=== PATIENT | male | born 1955 | race Caucasian/White ===

== ENCOUNTER 2018-02-18 15:55 | Emergency (ER) | payer OTHER ==
[~2018-02-18] VITALS: Ht 177.8 cm; Wt 72.6 kg
[2018-02-18 23:36] VITALS: BP 115/70
== END 2018-02-18 23:37 | disposition home or self-care (01) ==
LOC: ER 15:55
DX: F10.10 Alcohol abuse, uncomplicated (principal); S00.81XA Abrasion of other part of head, initial encounter; X58.XXXA Exposure to other specified factors, initial encounter; Y93.89 Activity, other specified; Y92.89 Other specified places as the place of occurrence of the external cause; Y99.8 Other external cause status

== ENCOUNTER 2018-07-24 08:28 | Inpatient (IN) | payer OTHER ==
[~2018-07-24] VITALS: Ht 188 cm; Wt 94.8 kg
[2018-07-24 08:29] VITALS: BP 182/96
[2018-07-24 11:15] LABS: HEMATOCRIT 53.3 % (42.0-52.0); HEMOGLOBIN 17.8 gm/dL (14.0-18.0); MCH 34.4 pg (26.0-34.0); MCHC 33.4 g/dL (28.0-37.0); MCV 102.8 fL (80.0-100.0); RBC 5.18 mil/uL (4.50-6.00); RDW 15.9 % (10.5-14.5); WBC 8.2 thou/uL (4.0-11.0)
[2018-07-24 11:21] LABS: CALCIUM 9.3 mg/dL (8.5-10.1); CREATININE 0.7 mg/dL (0.7-1.3); POTASSIUM 4.3 mmol/L (3.5-5.1)
[2018-07-24 13:28] LABS: PROTIME 9.6 Seconds (9.3-11.4)
[2018-07-24 13:41] VITALS: BP 152/88
[2018-07-24 14:26] VITALS: BP 161/80
[2018-07-24 15:13] VITALS: BP 179/98
--- NOTE | 2018-07-24 16:34 | NUR ---
Assumed care when arrived from ER. Patient is alert and oriented x4, pleasant. Denies pain, SOB, nausea. Admit with bilateral PEs and left leg DVT. Left leg is edematous, 3+ and red. Heparin gtt infusing from ER at 15 units / kg / hour or 13.3 ml/hr. Redraw aPtt in for 1999 per protocol. Admission history, assessment and education completed. Oriented to room, call light and fall precautions. Verbalizes understanding. Up ad albin in room with steady gait. Educated on telemetry and RF interference. Verbalizes understanding and consents signed. Paged Dr. Burt regarding CAGE score and current smoker. Librium ordered PRN, may need CIWA protocol, if this is not effective. Nicotine patch also ordered. Too early to determine progression towards POC. Will continue to monitor.
[2018-07-24 19:45] VITALS: BP 143/97
[2018-07-24] MEDS ORDERED: IBUPROFEN 800800 M1 PO (20:41)
[2018-07-24] MEDS ORDERED: OMEPRAZOLE40 MG PO (20:42)
[2018-07-24] MEDS ORDERED: LOSARTAN POTAS100 MG PO (20:43)
[2018-07-24] MEDS ORDERED: ZANTAC 150MG T150 M1 PO (20:46)
[2018-07-24] MEDS ORDERED: FLONASE 0.05%50 MCG NASAL (20:47)
[2018-07-24] MEDS ORDERED: SINGULAIR 10 MG10 M1 PO (20:47)
[2018-07-25 00:06] VITALS: BP 144/90
[2018-07-25 04:05] VITALS: BP 160/96
--- NOTE | 2018-07-25 04:55 | NUR ---
PATIENT IS PROGRESSING IN IS CARE PLAN. VITAL SIGNS STABLE WITH PATIENT HAVING NO COMPLAINTS OF PAIN OR NAUSEA. PATIENT IS FULLY ORIENTED AND ABLE TO CALL APPROPRIATELY FOR NEEDS AND PARTICIPATE IN CARE PLAN. HEPARIN GTT PER PROTOCOL WITH APTT THERAPEUTIC WHEN CHECKED. REDRAW SET FOR TOMORROW. BREATHING STABLE ON ROOM AIR EVIDENCED BY SPOT OXYGENATION CHECKS. PATIENT WAS ABLE TO AMBULATE FREELY AROUND THE ROOM INCIDENT FREE AND APPEARS BALANCED WHEN WALKING. CONTINUE PLAN OF CARE.
[2018-07-25 07:31] VITALS: BP 152/99
--- NOTE | 2018-07-25 10:36 | NUR ---
DP faxed face sheet to [facility]
--- NOTE | 2018-07-25 14:14 | NUR ---
INITIAL ASSESSMENT: SADAF reviewed chart and spoke with nursing and attending physician. Pt was admitted from home due to bilateral PEs/left leg DVT. Attending physician to recommend Eliquis at time of discharge. Pt does not have health insurance and has hx of ETOH use. Pt is homeless. SADAF met with pt at bedside. Introduced role of SW. Pt is alert/orientated x 4. Pt reports he has been staying with sister and nephew, and with friends. Pt has been to homeless shelters in the past and states he will be staying with family when discharged. SADAF discussed need for Eliquis and importance of continuing to take it and follow up with a PCP. SW provided pt with Eliquis packet with discount card and [employer] Resource Guid for primary care. shutdown planner to fax face sheet to [employer] for assistance with Medicaid application or financial assistance. Discharge home is anticipated for tomorrow. Pt to have Eliquis filled at [facility] Outpatient pharmacy. SW offered to arrange cab ride home when discharge. Pt states he will be fine with walking to family/friend's home. SADAF is following to assist as needed with discharge planning.
[2018-07-25 16:16] VITALS: BP 147/95
--- NOTE | 2018-07-25 18:44 | NUR ---
ASsumed care of pt at 0700. pt voicing no concerns. aox4. no pain. no complaints. up ad albin. heparin gtt therapeutic. anticipate d/c tomorrow.
[2018-07-25 19:27] VITALS: BP 145/86
[2018-07-26 05:29] VITALS: BP 132/87
[2018-07-26 07:21] VITALS: BP 146/101
--- NOTE | 2018-07-26 07:35 | NUR ---
Pt. stated he slept well during the night. Cont. on heparin gtt. and titrated per protocol. No signs of bleeding. Tolerating room air and denies being short of breath. Up ad albin in room with steady gait. Making progress towards care plan goals.
[2018-07-26] MEDS ORDERED: NICOTINE TRANSD21 M1 TRANSDERM (11:35)
[2018-07-26] MEDS ORDERED: NORVASC10 MG PO (11:35)
[2018-07-26] MEDS ORDERED: ELIQUIS5 M1 PO (11:35)
[2018-07-26 11:46] VITALS: BP 146/101
--- NOTE | 2018-07-26 13:22 | NUR ---
DISCHARGE NOTE: SW reviewed chart and spoke with nursing and attending physician. Pt is medically stable for discharge home today. Heparin gtt discontinued. Pt to be on Eliquis. Script written. Pt have meds filled at [facility] Out pharmacy. Pt does not qualify for Medicaid per [employer]. Pt needing cab ride to where he will be staying. Voucher provided to pt's nurse to call when pt's medications have been picked up. SADAF faxed face sheet and spoke with pharmacy. Case Mgmt to vouch for med ([facility]). Pt will have 30-day Eliquis free and is encouraged to call for additional financial assistance. Pt has info and packet. No additional SW needs identified at this time, but is available to assist should needs arise.
--- NOTE | 2018-07-26 13:36 | NUR ---
ASSUMED PATIENT CARE AT 0700. A/O X4 . DC HEPARIN GTT AT 1300. UP AD NAGA. PROGRESSING TOWARDS POC GOALS. DC TO HOME NOW.
== END 2018-07-26 13:46 | disposition home or self-care (01) | DRG 299 ==
LOC: ER 08:28 → 3W 12:45 → EROBS 12:45 → 3W 14:37 → ENTRNSPT 07-26 13:20 → EDTRNSPTSTS 07-26 13:28 → 3W 07-26 13:46
PROVIDERS: Emergency Medicine; ADMIT Hospitalist
DX: I82.412 Acute embolism and thrombosis of left femoral vein (principal); I26.99 Other pulmonary embolism without acute cor pulmonale; J98.11 Atelectasis; I82.432 Acute embolism and thrombosis of left popliteal vein; I10 Essential (primary) hypertension; F10.20 Alcohol dependence, uncomplicated; F17.210 Nicotine dependence, cigarettes, uncomplicated; Z71.6 Tobacco abuse counseling; Z79.899 Other long term (current) drug therapy
CPT/HCPCS: 10879

== ENCOUNTER 2018-09-21 17:17 | Emergency (ER) | payer OTHER ==
[~2018-09-21] VITALS: Ht 185.4 cm; Wt 90.7 kg
[~2018-09-21 17:17] MED LIST: ELIQUIS5 M1 PO; FLONASE 0.05%50 MCG NASAL; IBUPROFEN 800800 M1 PO; LOSARTAN POTAS100 MG PO; NICOTINE TRANSD21 M1 TRANSDERM; NORVASC10 MG PO; OMEPRAZOLE40 MG PO; SINGULAIR 10 MG10 M1 PO; ZANTAC 150MG T150 M1 PO
[2018-09-21 19:31] VITALS: BP 103/64
== END 2018-09-21 19:32 | disposition home or self-care (01) ==
LOC: ER 17:17
DX: S60.511A Abrasion of right hand, initial encounter (principal); S60.512A Abrasion of left hand, initial encounter; S80.811A Abrasion, right lower leg, initial encounter; S80.812A Abrasion, left lower leg, initial encounter; F10.129 Alcohol abuse with intoxication, unspecified; F17.210 Nicotine dependence, cigarettes, uncomplicated; X58.XXXA Exposure to other specified factors, initial encounter; Y92.89 Other specified places as the place of occurrence of the external cause; Y93.89 Activity, other specified; Y99.8 Other external cause status

== ENCOUNTER 2018-11-11 18:29 | Emergency (ER) | payer OTHER ==
[~2018-11-11] VITALS: Ht 188 cm; Wt 90.7 kg
[2018-11-11 19:23] LABS: BE(vivo) 1.8 mmol/L (-2 to +3); HCO3 26.4 mmol/L (22.0-26.0); PCO2 41.4 mmHg (35.0-45.0); PO2 68.5 mmHg (80.0-100.0); pH 7.423 (7.360-7.450); sO2 94.1 % (92.0-98.0)
[2018-11-11 19:24] LABS: ABSOLUTE NEUTROPHILS 1.5 thou/uL (1.4-8.2); BASOPHILS 1.4 % (0.0-2.0); EOSINOPHILS 9.8 % (0.0-3.0); HEMATOCRIT 43.2 % (42.0-52.0); HEMOGLOBIN 14.4 gm/dL (14.0-18.0); MCH 34.9 pg (26.0-34.0); MCHC 33.3 g/dL (28.0-37.0); MCV 104.8 fL (80.0-100.0); MONOCYTES 8.1 % (1.0-8.0); PLATELET COUNT 217 thou/uL (150-400); POLYS 24.7 % (36.0-66.0); RBC 4.13 mil/uL (4.50-6.00); RDW 15.4 % (10.5-14.5); WBC 5.9 thou/uL (4.0-11.0)
[2018-11-11 19:30] LABS: ANION GAP 10 mmol/L (7-16); BUN 7 mg/dL (7-18); CALCIUM 8.4 mg/dL (8.5-10.1); CHLORIDE 105 mmol/L (98-107); CO2 28 mmol/L (21-32); CREATININE 0.8 mg/dL (0.7-1.3); GLUCOSE 126 mg/dL (74-106); POTASSIUM 3.8 mmol/L (3.5-5.1); SODIUM 143 mmol/L (136-145)
[2018-11-11 19:40] LABS: TROPONIN-I <0.06 ng/mL (<0.06)
[2018-11-12 01:49] VITALS: BP 112/66
--- NOTE | 2018-11-12 14:07 | EKG ---
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[facility] : 1955 Requested By: Nishant Castañeda Order Number: [id number] MD: Bryce Beckwith Measurements Intervals [place] Rate: 86 P: 73 NE: 140 QRS: 73 QRSD: 103 T: 68 QT: 395 QTc: 473 Interpretive Statements Sinus rhythm Atrial premature complex Baseline wander in lead(s) V2 No previous ECG available for comparison Electronically Signed On 11-12-2018 14:07:07 CDT by Bryce Beckwith [email or web address] ��������������������������������������������� <ELECTRONICALLY SIGNED> ���������������������������������������� By: Bryce Beckwith MD ��������������������������������������������� 11/12/18 1407 192 25 Bryce Beckwith MD /LUCERO
== END 2018-11-12 01:50 | disposition home or self-care (01) ==
LOC: ER 18:29
PROVIDERS: Emergency Medicine
DX: F10.129 Alcohol abuse with intoxication, unspecified (principal); F17.210 Nicotine dependence, cigarettes, uncomplicated; Y90.9 Presence of alcohol in blood, level not specified

== ENCOUNTER 2019-03-20 17:12 | Emergency (ER) | payer OTHER ==
[~2019-03-20] VITALS: Ht 185.4 cm; Wt 90.7 kg
[2019-03-20 22:41] VITALS: BP 126/67
== END 2019-03-20 22:45 | disposition home or self-care (01) ==
LOC: ER 17:12
DX: F10.129 Alcohol abuse with intoxication, unspecified (principal); F17.210 Nicotine dependence, cigarettes, uncomplicated

== ENCOUNTER 2019-04-18 14:41 | Emergency (ER) | payer OTHER ==
[~2019-04-18] VITALS: Ht 185.4 cm; Wt 90.7 kg
[2019-04-18 16:44] VITALS: BP 128/72
== END 2019-04-18 16:50 | disposition home or self-care (01) ==
LOC: ER 14:41
DX: S05.12XA Contusion of eyeball and orbital tissues, left eye, initial encounter (principal); F10.129 Alcohol abuse with intoxication, unspecified; F17.210 Nicotine dependence, cigarettes, uncomplicated; W18.30XA Fall on same level, unspecified, initial encounter; Y93.89 Activity, other specified; Y92.89 Other specified places as the place of occurrence of the external cause; Y99.8 Other external cause status; Y90.9 Presence of alcohol in blood, level not specified

== ENCOUNTER 2019-04-21 20:25 | Emergency (ER) | payer OTHER ==
[~2019-04-21] VITALS: Ht 188 cm; Wt 99.8 kg
[2019-04-22 01:10] VITALS: BP 103/63
== END 2019-04-22 01:11 | disposition home or self-care (01) ==
LOC: ER 20:25
DX: F10.129 Alcohol abuse with intoxication, unspecified (principal); F17.210 Nicotine dependence, cigarettes, uncomplicated

== ENCOUNTER 2019-06-14 18:51 | Emergency (ER) | payer OTHER ==
[~2019-06-14] VITALS: Ht 188 cm; Wt 95.3 kg
[2019-06-14 21:05] VITALS: BP 111/58
== END 2019-06-14 21:05 ==
LOC: ER 18:51
DX: F10.129 Alcohol abuse with intoxication, unspecified (principal); R55 Syncope and collapse; R53.83 Other fatigue; F17.210 Nicotine dependence, cigarettes, uncomplicated; Z02.89 Encounter for other administrative examinations; Y90.9 Presence of alcohol in blood, level not specified

== ENCOUNTER 2019-08-18 13:03 | Emergency (ER) | payer OTHER ==
[~2019-08-18] VITALS: Ht 182.9 cm; Wt 91.0 kg
[2019-08-18 17:59] VITALS: BP 110/74
== END 2019-08-18 18:54 | disposition home or self-care (01) ==
LOC: ER 13:03
DX: F10.920 Alcohol use, unspecified with intoxication, uncomplicated (principal); F17.210 Nicotine dependence, cigarettes, uncomplicated

== ENCOUNTER 2019-11-03 17:22 | Inpatient (IN) | payer OTHER ==
[~2019-11-03] VITALS: Ht 188 cm; Wt 92.1 kg
[2019-11-03 17:23] VITALS: BP 118/85
[2019-11-03 18:09] LABS: ABSOLUTE NEUTROPHILS 8.4 thou/uL (1.4-8.2); BASOPHILS 0.3 % (0.0-2.0); EOSINOPHILS 0.6 % (0.0-3.0); HEMATOCRIT 54.4 % (42.0-52.0); HEMOGLOBIN 18.8 gm/dL (14.0-18.0); MCH 36.3 pg (26.0-34.0); MCHC 34.6 g/dL (28.0-37.0); MCV 104.7 fL (80.0-100.0); MONOCYTES 8.6 % (1.0-8.0); PLATELET COUNT 151 thou/uL (150-400); POLYS 78.5 % (36.0-66.0); RBC 5.19 mil/uL (4.50-6.00); RDW 14.2 % (10.5-14.5); WBC 10.7 thou/uL (4.0-11.0)
[2019-11-03 18:18] LABS: CALCIUM 8.8 mg/dL (8.5-10.1); CREATININE 0.9 mg/dL (0.7-1.3); POTASSIUM 3.7 mmol/L (3.5-5.1)
[2019-11-03 18:28] LABS: TOTAL BILIRUBIN 1.5 mg/dL (0.2-1.0); TOTAL PROTEIN 7.5 g/dL (6.4-8.2); TROPONIN-I 0.32 ng/mL (<0.06)
[2019-11-03 19:51] LABS: BE(vivo) 3.6 mmol/L (-2 to +3); HCO3 25.9 mmol/L (22.0-26.0); PCO2 33.3 mmHg (35.0-45.0); PO2 65.3 mmHg (80.0-100.0); pH 7.508 (7.360-7.450); sO2 94.7 % (92.0-98.0)
[2019-11-03 19:59] LABS: INR 1.2; PROTIME 11.9 Seconds (9.3-11.4)
[2019-11-03 20:16] VITALS: BP 118/85
[2019-11-03 20:38] VITALS: BP 118/85
[2019-11-03 20:55] VITALS: BP 112/65
[2019-11-03 21:25] VITALS: BP 126/89
[2019-11-03 23:37] VITALS: BP 131/88
--- NOTE | 2019-11-04 01:03 | NUR ---
PT ADMITTED FROM ER AROUND 2114 PM. ALERT AND ORIENTED X4.VSS 98.9 TEMP. SATS 94% ON 3LNC. LUNGS SOUND DIMINISHED AND CURRENTLY UNLABORED ON 3LNC. SR WITH PACS ON TELEMETRY. ORIENTED PT TO . INSTRUCTED ON FALL PRECAUTIONS. HEPARIN BOLUS GIVEN AND DRIP INITIATED ORDERED. PT DENIES CHEST PAIN, DIZZINESS OR SOA PRESENTLY. NO S/S BLEEDING NOTED PRESENTLY. ALONZO LE VENOUS DOPPLERS DONE. NO SCDS DUE TO ALONZO LE DVTS. WILL CONTINUE TO MONITOR PT FOR CHANGES.
[2019-11-04 04:11] VITALS: BP 124/84
--- NOTE | 2019-11-04 04:29 | NUR ---
PT RESTING QUIETLY. VSS AFEBRILE. NO S/S DISTRESS. NO BLEEDING NOTED. HEPARIN AND NS INFUSIN WITHOUT DIFFICULTY LEFT FA. NO C/O DIZZINESS OR CHEST PAIN.
[2019-11-04 04:43] LABS: HEMATOCRIT 50.2 % (42.0-52.0); HEMOGLOBIN 17.1 gm/dL (14.0-18.0); MCHC 34.1 g/dL (28.0-37.0); MCV 105.4 fL (80.0-100.0); RBC 4.76 mil/uL (4.50-6.00); WBC 8.8 thou/uL (4.0-11.0)
[2019-11-04 04:59] LABS: ANION GAP 8 mmol/L (7-16); BUN 5 mg/dL (7-18); CALCIUM 8.3 mg/dL (8.5-10.1); CHLORIDE 101 mmol/L (98-107); CHOLESTEROL 113 mg/dL (<200); CO2 31 mmol/L (21-32); CREATININE 0.9 mg/dL (0.7-1.3); GLUCOSE 109 mg/dL (74-106); HDL CHOLESTEROL 29 mg/dL (>40); LDL CHOLESTEROL 75 mg/dL (<100); MAGNESIUM 1.9 mg/dL (1.8-2.4); SODIUM 140 mmol/L (136-145); TC:HDL 3.9 Ratio (Not establshd); TRIGLYCERIDE 47 mg/dL (<150); TROPONIN-I 0.22 ng/mL (<0.06); VLDL 9 mg/dL (<40)
[2019-11-04 05:02] LABS: SERUM ASSESSMENT Clear
[2019-11-04 07:14] VITALS: BP 135/94
--- NOTE | 2019-11-04 08:28 | EKG ---
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: AMOS : 1955 Requested By: Arlene Mcgregor Order Number: [id number] MD: Alberto Mustafa Measurements Intervals [place] Rate: 108 P: 80 IN: 127 QRS: 85 QRSD: 98 T: 37 QT: 375 QTc: 503 Interpretive Statements Sinus tachycardia Borderline right axis deviation Borderline repolarization abnormality Prolonged QT interval Compared to ECG 11/11/2018 19:26:34 Prolonged QT interval now present Right ventricular conduction delay is now present Electronically Signed On 11-04-2019 8:28:42 CDT by Alberto Mustafa [email or web address] <ELECTRONICALLY SIGNED> By: Alberto Mustafa MD, FAC 11/04/19 0828 180 180 Alberto Mustafa MD, FAC /EPI
--- NOTE | 2019-11-04 11:01 | NUR ---
INITIAL ASSESSMENT: Received consult. SW reviewed chart and spoke with nursing and attending physician. Pt was admitted due to bilateral PE. Pt is on heparin gtt. Pt placed in Enhanced Isolation to r/o COVID-19. Pt is afebrile and requiring 3L of O2. SW placed call to pt's room. No answer. SW left voice message on pt's cell phone. Pt does not have health insurance. Med Assist to follow up with pt to assist with financial assistance/Medicaid application. Pt was started on Eliquis during last hospital stay last year. Per nursing, pt is homeless. SW is following to assist as needed with discharge planning.
[2019-11-04 11:10] VITALS: BP 124/92
--- NOTE | 2019-11-04 13:19 | NUR ---
ASSUMED PATIENT CARE THIS AM AT APPROXXIMATELY 0700. PATIENT IS AWAKE ALERT ORIENTED. PLEASANT AND COOPERATIVE. MEDS AND ASSESSMENTS CHARTED. ON HEPARIN GTT AT THIS TIME. REDRAW AT 1000 SHOWS WITHIN THERAPEUTIC RANGE. WILL RECHECK LEVEL DAILY, NEXT DRAW SCHEDULD FOR TOMORROW IN AM. DAILY ETOH DRINKER, DENIES ANY S/S OF WITHDRAWL AT THIS TIME. PATIENT O2 SAT STABLE ON 3LNC. NO COMPLAINTS OF SOB OR CP AT REST. SOME DYSPNEA WITH EXERTION NOTED. ENCOURAGED PATIENT TO REMAIN ON BEDREST TOLERATED, PATIENT SEEN BY CONSULTANTS THIS SHIFT. PLAN FOR ECHO TO BE COMPLETED PER CARDIO. PULMONARY SPOKE WITH PATIENT REGARDING POSSIBLE PLAN FOR IVC FILTER. ALL QUESTIONS/ CONCERNS ANSWERED/ ADDRESSED.
--- NOTE | 2019-11-04 14:37 | NUR ---
SPOKE WITH ARNOLD KERN RN. ORDER FOR REPEAT COVID TEST OBTAINED.
[2019-11-04 15:17] VITALS: BP 127/95
[2019-11-04 19:03] VITALS: BP 127/80
--- NOTE | 2019-11-04 19:55 | NUR ---
PROVIDER NOTIFIED OF COVID NEG ALONG WITH [employer] CONSULTANT AND CHARGE NURSE.
--- NOTE | 2019-11-04 20:32 | NUR ---
PT RESTING IN BED WATCHING TV, SMILING [employer] CONTACT,JOKING WITH STAFF. PT VERBALIZED UNDERSTANDING NOT TO GET OOB WITH OUT ASSISTANCE. IVF AND HEAPRIN INTACT. BLE EDEMA. BETO SKIN TONE. LUNGS WITH WHEEZES. SOA WITH EXERTION. O2 PER NC.
[2019-11-05 01:06] LABS: GLYCOHEMOGLOBIN (HGB A1C) 5.3 % (4.8-5.6)
[2019-11-05 02:51] VITALS: BP 144/95
--- NOTE | 2019-11-05 03:41 | NUR ---
PT AWAKENED AT 0300 STATING IT WAS 0430 AND HE WANTED TO ORDER BREAKFAST. PT EDUCATED BREAKFAST CAN BE ORDERED AT 0630.
--- NOTE | 2019-11-05 03:43 | NUR ---
HEPARING PTT LOW DRIP ADJUSTED AND BOLUS GIVEN.
[2019-11-05 07:56] VITALS: BP 123/84
--- NOTE | 2019-11-05 09:54 | NUR ---
SPOKE WITH YOLANDA GARCES THIS AM VIA TELEPHONE. ORDERS RECIEVED TO D/C ISOLATION AFTER SECOND COVID NEGATIVE. DR. SHAHZAD VILLALOBOS WITH MS/TELE STATUS MADE GUSTAVO GR AWARE AT THIS TIME. AWAITING BED/ TRANSFER ORDERS.
[2019-11-05 11:09] VITALS: BP 140/92
--- NOTE | 2019-11-05 11:27 | 2DMMODE ---
[facility] [address] [place] [address] 2 D/M-MODE ECHOCARDIOGRAM Name: TEOFILO GOODEN Room #: 356-P ADM IN M.R.#: [id number] Admission: 11/03/19 Attend Phys: Umair Valencia MD Discharge: Date of : 57 Report #: [id number] THIS REPORT FOR: cc: FAM - No family physician/PCP FAM - No family physician/PCP Reyes Murphy MD ~ APPROVED REPORT Study performed: 11/05/2019 10:18:42 EXAM: Comprehensive 2D, Doppler, and color-flow Echocardiogram Patient Location: Bedside Room #: 356 Status: routine BSA: 2.14 HR: 75 bpm BP: 123/84 mmHg Rhythm: NSR Other Information Study Quality: Adequate/lung artifact Indications Pulmonary Embolism Elevated troponin. Hx: HTN, COPD. 2D Dimensions RVDd: 43.89 mm IVSd: 13.16 (7-11mm) LVOT Diam: 23.21 (18-24mm) LVDd: 39.93 mm PWd: 12.78 (7-11mm) Ascending Ao: 34.34 (22-36mm) LVDs: 24.41 (25-40mm) Aortic Root: 32.01 mm Volumes Left Atrial Volume (Systole) Single Plane 4CH: 25.15 mL Single Plane 2CH: 55.35 mL LA ESV Index: 21.00 mL/m2 Aortic Valve AoV Peak Romeo.: 1.19 m/s AO Peak Gr.: 5.63 mmHg LVOT Max P.27 mmHg LVOT Max V: 1.03 m/s [facility] [address] [address] 2 D/M-MODE ECHOCARDIOGRAM Name: TEOFILO GOODEN Room #: 356-P [facility].#: [id number] Admission: 11/03/19 Attend Phys: Umair Valencia, Discharge: Date of : 57 Report #: [id number] [id number] Vmax: 3.68 cm2 Mitral Valve E/A Ratio: 0.7 MV Decel. Time: 256.16 ms MV E Max Romeo.: 0.50 m/s MV A Romeo.: 0.76 m/s MV PHT: 74.29 ms IVRT: 101.50 ms Pulmonary Valve PV Peak Romeo.: 0.63 m/s PV Peak Gr.: 1.60 mmHg Pulmonary Vein P Vein S: 0.53 m/s P Vein A: 0.28 m/s P Vein D: 0.37 m/s P Vein A Dur.: 115.3 msec P Vein S/D Ratio: 1.43 Tricuspid Valve TR Peak Romeo.: 2.83 m/s RAP Estimate: 15.00 mmHg TR Peak Gr.: 32.14 mmHg PA Pressure: 47.00 mmHg Left Ventricle The left ventricle is normal size. There is normal LV segmental wall motion. Mild basal septal hypertrophy is present. Left ventricular systolic function is normal. LVEF is 55-60%. Mild diastolic dysfunction is present (impaired relaxation pattern). Right Ventricle Right ventricle is at upper limits of normal The right ventricular systolic function is low normal. Atria The left atrium size is normal. Right atrium is mildly dilated. Aortic Valve The aortic valve is normal in structure. No aortic regurgitation is present. There is no aortic valvular stenosis. Mitral Valve The mitral valve is normal in structure. Trace mitral regurgitation. No evidence of mitral valve stenosis. Tricuspid Valve [facility] [address] [address] 2 D/M-MODE ECHOCARDIOGRAM Name: TEOFILO GOODEN Room #: 356-P ADM IN M.R.#: [id number] Admission: 11/03/19 Attend Phys: Umair Valencia, Discharge: Date of : 57 Report #: [id number] The tricuspid valve is normal in structure. Moderate tricuspid regurgitation. Estimated PAP is 45-50mmHg. Pulmonic Valve The pulmonary valve is normal in structure. Trace pulmonic regurgitation. Great Vessels The aortic root is normal in size. The ascending aorta is normal in size. IVC is dilated and collapses <50% with inspiration. Pericardium There is no pericardial effusion. <Conclusion> The left ventricle is normal size. LVEF is 55-60%. Right ventricle is at upper limits of normal The right ventricular systolic function is low normal. Right atrium is mildly dilated. The aortic valve is normal in structure. The mitral valve is normal in structure. Trace mitral regurgitation. The tricuspid valve is normal in structure. Moderate tricuspid regurgitation. Estimated PAP is 45-50mmHg. The pulmonary valve is normal in structure. Trace pulmonic regurgitation. There is no pericardial effusion. <ELECTRONICALLY SIGNED> By: Reyes Murphy MD 11/05/19 1127 1127 1127 Reyes Murphy MD /INF
--- NOTE | 2019-11-05 11:54 | NUR ---
ASSUMED PATIENT CARE THIS AM AT APPROXIMATELY 0700. PATIENT IS AWAKE ALERT ORIENTED IN NO ACUTE DISTRESS. PATIENT PLEASANT, NO S/S OF WITHDRAWL NOTED AT THIS TIME. SECOND COVID RESULTED NEGATIVE LAST NIGHT. ISOLATION DISCONTINUED PER DR. HERNANDEZ AND YOLANDA GARCES THIS AM. PATIENT O2 SAT STABLE ON 2LNC. NO COMPLAINTS OF SOB WHILE RESTING. AWAITING ROOM ASSIGNMENT FOR TRANSFER.
--- NOTE | 2019-11-05 14:31 | NUR ---
SW reviewed chart and spoke with nursing. Pt's repeat COVID test is negative. Pt is afebrile and on 3L of O2. Pt is on heparin gtt. Pt may have IVC filter placed. Pt to transfer off 3W when a bed is available. SW placed call to pt's room. No answer. SW will follow up with pt and assist as needed with discharge planning.
[2019-11-05 15:09] VITALS: BP 133/92
--- NOTE | 2019-11-05 17:59 | NUR ---
PATIENT O2 SAT STABLE ON 2LNC. HEPARIN GTT DISCONTINUED THIS SHIFT AND STARTED ON ELIQUIS PO. FIRST DOSE GIVEN TODAY AND EDUCATED PATIENT ON INDICATION OF MEDICATION, DOSE AND POSSIBLE SIDE EFFECTS OF BLEEDING. SPECIAL PRECAUTIONS ISOLATION DISCONTINUED THIS SHIFT. TOLERATING DIET, NO COMPLAINTS OF SOB. VSS.
[2019-11-05 19:36] VITALS: BP 127/93
--- NOTE | 2019-11-06 03:35 | NUR ---
ASSUMED CARE OF PATIENT AT 1900. PATIENT CONTINUES ON 2L OF OXYGEN VIA NASAL CANNULA. PATIENT DENIES PAIN AND SOA. PATIENT RESTED WELL THROUGH NIGHT AND APPEARS TO BE PROGRESSING TOWARDS HIS GOALS.
[2019-11-06 05:13] VITALS: BP 141/95
[2019-11-06 06:05] LABS: HEMATOCRIT 49.8 % (42.0-52.0); HEMOGLOBIN 16.6 gm/dL (14.0-18.0); MCH 35.8 pg (26.0-34.0); MCHC 33.2 g/dL (28.0-37.0); MCV 107.6 fL (80.0-100.0); RBC 4.63 mil/uL (4.50-6.00); RDW 13.5 % (10.5-14.5); WBC 6.5 thou/uL (4.0-11.0)
[2019-11-06 07:56] VITALS: BP 143/93
--- NOTE | 2019-11-06 12:57 | NUR ---
SADAF reviewed chart and spoke with nursing and attending physician. Pt has had two negative COVID-19 tests. Enhanced Isolation precautions discontinued. Pt started on Eliquis today. Pt remains on 2L of O2. SADAF met with pt at bedside. Introduced role of SW. Pt is alert/orientated x 4. Pt reports he is homeless, but has a place where he can stay temporarily when discharged. Pt reports he is normally independent with ADLs. 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 Pt does not have health insurance. Med Assist to follow up with pt regarding financial assistance/Medicaid application. SADAF placed Health Resource Guide/Safety net clinic list/prescription discount card/ Eliquis cards on pt's chart for discharge. Pt reports that he will have transportation home upon discharge. SADAF is following to assist as needed with discharge planning.
--- NOTE | 2019-11-06 16:18 | NUR ---
ASSUMED CARE OF PT AT 0700. PT AOX4 IN NO ACUTE DISTRESS. DIFFICULTY WITH FOLLOWING DIRECTIONS - PULLING OUT MULTIPLE IV'S AND REMOVING TELEMETRY WIRES. REMOVES DESPITE FREQUENT REMINDERS. IVC FILTER PLACED TODAY IN IR - RIGHT GROIN C/D/I. OK TO KEEP OUT IV ACCESS PER HOSPITALIST. REMAINS ON 2L NC . CALLS OUT APPOROPRIATELY. USING URINAL. SR ON TELEMETRY. WILL CONT TO MONITOR.
[2019-11-06 16:35] VITALS: BP 166/111
[2019-11-06 18:13] VITALS: BP 133/89
[2019-11-06 20:19] VITALS: BP 120/83
[2019-11-07 05:05] VITALS: BP 147/99
--- NOTE | 2019-11-07 06:13 | NUR ---
ASSUMED CARE AT 1900, ASSESSMENT COMPLETED. PT A&Ox4 BUT MAKES IMPULSIVE DECISIONS AND PULLS AT TELE AND O2. SLIGHTLY UNSTEADY ON FEED, SET BED ALARM OFF MULTIPLE TIMES OVERNIGHT WHEN USING URINAL, AND AT ONE POINT WAS FOUND KNEELING ON THE MATTRESS VERY UNSTEADILY WHILE URINATING. RIGHT GROIN SITE IS SOFT, NO HEMATOMA NOTED, AND NO SIGNS OF BLEEDING. PLAN FOR EXERCISE OXIMETRY STUDY TODAY WITH POSSIBLE D/C HOME AFTER. NO OTHER CONCERNS, WILL CONTINUE TO MONITOR.
[2019-11-07 07:20] VITALS: BP 144/96
[2019-11-07 07:55] VITALS: BP 147/90
--- NOTE | 2019-11-07 14:06 | NUR ---
SADAF reviewed chart and spoke with nursing and attending physician. Enhanced Isolation precautions have been discontinued. Pt has had two negative COVID tests. Pt had rest/exercise oximetry study completed earlier today. Pt requires 2L at rest and 4L with activity. Pt does not have health insurance. SADAF discussed with [facility] liaison. Weekend O2 lazaro set up is not an option, as it must be approved through the office. It would be $100/mo for a concentrator, $7/tank plus $5 for a regulator, OR $155/month for a home fill system with a concentrator and two portable tanks. SADAF contacted Lius A with [facility], who states they should be able to get pt set up over the weekend, but he will check with his office. [facility] to be billed. SADAF discussed with Director of Case Mgmt, who approved. Pt to be retested tomorrow to see if he will need home oxygen. Pt may need to stay until off O2. Cardiology provided samples of Eliquis to pt. Health Resource Guide and info placed on pt's chart to provide to pt at time of discharge. SADAF is following to assist as needed with discharge planning.
--- NOTE | 2019-11-07 14:33 | NUR ---
ASSUMED CARE APPROX 0700. PT ALERT AND ORIENTED X4. ASSESSMENT CHARTED AND VSS. PT RT GROIN POST CATH SITE C/D/I. SLIGHT BRUISING BELOW DRESSING. NO SIGNS OF ACTIVE BLEEDING OR HEMATOMA. PT DENIES PAIN AT THIS TIME. PT D/C'D HIS OWN IV TODAY AND STATED THAT HE THOUGHT HE WAS GOING HOME. IV NOT PLACED WE HAVE AN ORDER TO KEEP IV OUT PER DR. PIKE. SR ON TELE MONITOR. PT DENIES PAIN. PT DENIES CHEST PAIN. WILL CONTINUE TO MONITOR.
[2019-11-07 16:21] VITALS: BP 137/92
[2019-11-07 19:30] VITALS: BP 147/92
[2019-11-07 23:58] VITALS: BP 163/99
--- NOTE | 2019-11-08 00:17 | NUR ---
ASSUMED CARE AT 1900, ASSESSMENT COMPLETED. PT DENIES PAIN OR NAUSEA, REPORTS BREATHING WITHOUT ISSUE. NO O2 ON, SAT 92%. BEDSIDE REPORT GIVEN TO ROBERTO STILL ON 4W AT 2330, PT IN STABLE CONDITION.
--- NOTE | 2019-11-08 04:31 | NUR ---
VSS-AFEBRILE. TRANSFERRED FROM 3W, RESTED WELL THROUGH NIGHT. C/O HEADACHE, TYLENOL GIVEN WITH RELIEF NOTED. OOB WITH SBA-STEADY ON FEET. FALL PRECAUTIONS IN PLACE, CALLS APPROPRIATELY FOR ANY NEEDED ASSISTANCE.
[2019-11-08 05:33] LABS: HEMATOCRIT 50.6 % (42.0-52.0); HEMOGLOBIN 17.1 gm/dL (14.0-18.0); MCH 36.2 pg (26.0-34.0); MCHC 33.8 g/dL (28.0-37.0); MCV 106.9 fL (80.0-100.0); RBC 4.73 mil/uL (4.50-6.00); RDW 13.8 % (10.5-14.5); WBC 6.5 thou/uL (4.0-11.0)
[2019-11-08 05:42] LABS: CALCIUM 8.6 mg/dL (8.5-10.1); CREATININE 0.8 mg/dL (0.7-1.3); POTASSIUM 4.2 mmol/L (3.5-5.1)
[2019-11-08] MEDS ORDERED: ELIQUIS5 MG PO (09:27)
[2019-11-08 09:29] VITALS: BP 135/91
[2019-11-08 12:54] VITALS: BP 135/91
--- NOTE | 2019-11-08 15:28 | NUR ---
PT IS AOX4, VSS, NO C/O PAIN. PT UP AD NAGA IN ROOM. PT RECEIVED DISCHARGE INSTRUCTIONS AND VERBALIZED UNDERSTANDING. NO IV ACCESS. HOOP MAKER TOOK PT OUT TO CAR WITH FAMILY TO TRANSPORT HOME.
== END 2019-11-08 15:01 | disposition home or self-care (01) | DRG 166 ==
LOC: ER 17:22 → EROBS 19:48 → 3W 20:55 → 4W 11-07 23:29
PROVIDERS: Hospitalist; Nurse Practitioner Family; Physician Assistant; ADMIT Internal Medicine; ATTEND Internal Medicine
PROC: 06H03DZ Insertion of Intraluminal Device into Inferior Vena Cava, Percutaneous Approach (ICD-10-PCS; principal; 2019-11-06)
DX: I26.99 Other pulmonary embolism without acute cor pulmonale (principal); J96.01 Acute respiratory failure with hypoxia; I21.4 Non-ST elevation (NSTEMI) myocardial infarction; I82.413 Acute embolism and thrombosis of femoral vein, bilateral; I82.433 Acute embolism and thrombosis of popliteal vein, bilateral; J44.9 Chronic obstructive pulmonary disease, unspecified; I27.20 Pulmonary hypertension, unspecified; I10 Essential (primary) hypertension; E87.6 Hypokalemia; F17.210 Nicotine dependence, cigarettes, uncomplicated; F10.20 Alcohol dependence, uncomplicated; Y90.9 Presence of alcohol in blood, level not specified; Z20.828 Contact with and (suspected) exposure to other viral communicable diseases
CPT/HCPCS: 10045; 10879

== ENCOUNTER 2020-05-29 23:27 | Emergency (ER) | payer OTHER ==
[~2020-05-29] VITALS: Ht 188 cm; Wt 99.8 kg
[~2020-05-29 23:27] MED LIST changes: +ELIQUIS5 MG PO
[2020-05-29 23:31] VITALS: BP 144/91
== END 2020-05-30 00:11 | disposition home or self-care (01) ==
LOC: ER 23:27
DX: I87.8 Other specified disorders of veins (principal); I87.2 Venous insufficiency (chronic) (peripheral); R60.0 Localized edema; I10 Essential (primary) hypertension; J44.9 Chronic obstructive pulmonary disease, unspecified; F17.210 Nicotine dependence, cigarettes, uncomplicated

== ENCOUNTER 2020-09-24 10:53 | Inpatient (IN) | payer OTHER ==
[~2020-09-24] VITALS: Ht 185.4 cm; Wt 112.2 kg
[2020-09-24 11:00] VITALS: BP 124/77
[2020-09-24 11:31] LABS: HEMATOCRIT 47.4 % (42.0-52.0); HEMOGLOBIN 16.2 gm/dL (14.0-18.0); MCH 37.9 pg (26.0-34.0); MCHC 34.1 g/dL (28.0-37.0); MCV 111.1 fL (80.0-100.0); PLATELET COUNT 181 thou/uL (150-400); RBC 4.26 mil/uL (4.50-6.00); RDW 14.6 % (10.5-14.5); WBC 23.4 thou/uL (4.0-11.0)
[2020-09-24 11:40] LABS: ANION GAP 11 mmol/L (7-16); BUN 11 mg/dL (7-18); CALCIUM 8.7 mg/dL (8.5-10.1); CHLORIDE 95 mmol/L (98-107); CO2 27 mmol/L (21-32); CREATININE 1.5 mg/dL (0.7-1.3); GLUCOSE 126 mg/dL (74-106); POTASSIUM 3.7 mmol/L (3.5-5.1); SODIUM 133 mmol/L (136-145)
[2020-09-24 11:49] LABS: SGOT 290 U/L (15-37); SGPT 102 U/L (16-63); TOTAL BILIRUBIN 3.1 mg/dL (0.2-1.0); TOTAL PROTEIN 7.2 g/dL (6.4-8.2); TROPONIN-I <0.06 ng/mL (<0.06)
[2020-09-24 12:40] LABS: ABSOLUTE NEUTROPHILS 22.9 thou/uL (1.4-8.2); ANISOCYTOSIS 1+; MACROCYTES 2+; PLATELET ESTIMATE NORMAL
[2020-09-24 15:12] LABS: URINE BILIRUBIN NEGATIVE (Negative); URINE BLOOD 2+ (Negative); URINE CLARITY CLEAR; URINE COLOR YELLOW; URINE GLUCOSE-RANDOM* NEGATIVE (Negative); URINE KETONES TRACE (Negative); URINE LEUKOCYTES-REFLEX NEGATIVE (Negative); URINE PROTEIN (DIPSTICK) TRACE (Negative)
[2020-09-24 15:13] LABS: URINE NITRITE-REFLEX POSITIVE (Negative)
[2020-09-24 15:25] LABS: BACTERIA-REFLEX 1-9 Few /HPF (None Seen); HYALINE CASTS 0-3 Few /LPF (None Seen); SQUAMOUS None Seen /LPF (0-3); URINE RBC 1-2 Rare /HPF (NONE SEEN); URINE WBC-REFLEX None Seen /HPF (0-5)
[2020-09-24 15:26] LABS: CRYSTALS None Seen /LPF (None Seen)
[2020-09-24 16:22] VITALS: BP 128/74
[2020-09-24 16:34] VITALS: BP 136/66
[2020-09-24 16:50] VITALS: BP 125/76
--- NOTE | 2020-09-24 17:29 | NUR ---
PATIENT BROUGHT TO FLOOR AT 1713 BY ER STAFF. NO FLUIDS INFUSING. PT A&OX4 BUT PERIODS OF FORGETFUL/CONFUSION. BELONGINGS PUT IN BACKPACK AND PLACED IN CLOSET. BEER BROUGHT IN BY PATIENT GIVEN TO SECURITY.
[2020-09-25 04:33] LABS: CALCIUM 7.4 mg/dL (8.5-10.1); CREATININE 1.1 mg/dL (0.7-1.3); MAGNESIUM 2.1 mg/dL (1.8-2.4); POTASSIUM 3.2 mmol/L (3.5-5.1)
[2020-09-25 05:03] VITALS: BP 101/61
[2020-09-25 07:52] VITALS: BP 92/56
--- NOTE | 2020-09-25 08:09 | NUR ---
PT WENT INTO AFIB THIS EARLY THIS MORNING, METOPROLOL WAS GIVEN, NO EFFECT NOTED. PT HYPOENTSIVE AFTER METOPROLOL BP 91/61 STILL AFIB WITH RAPID RATE. RAPID RESPONSE CALLED, SEE FLOW SHEET. PT NOW ON CARDIZEM , CURRENTLY AT 15MG/HR, HR 130'S T0 150'S. REPORT GIVEN TO ONCOMING RN.
--- NOTE | 2020-09-25 08:45 | EKG ---
[address] [address] ELECTROCARDIOGRAM REPORT Name: TEOFILO GOODEN Room #: 214-P ADM IN M.R.#: [id number] Admission: 09/24/20 Attend Phys: Sulema Dwyer MD Discharge: Date of : 57 Report #: [id number] [facility] ED Test Date: 2020-09-24 Test Time: 11:53:23 Pat Name: TEOFILO GOODEN Department: Room: 214 Gender: M Transfer Specialist: MARLINE : 1955 Requested By: Sade Chew Order Number: [id number] : Som Benavidez Measurements Intervals [place] Rate: 91 P: 58 NM: 126 QRS: 42 QRSD: 95 T: 61 QT: 459 QTc: 565 Interpretive Statements Sinus rhythm Probable left atrial enlargement Prolonged QT interval Compared to ECG 11/03/2019 18:01:56 Sinus tachycardia no longer present Electronically Signed On 09-25-2020 8:45:27 CDT by Som Benavidez [email or web address] <ELECTRONICALLY SIGNED> By: Som Benavidez MD, [facility] 09/25/20 0845 1153 1153 Som Benavidez MD, FACC /EPI
--- NOTE | 2020-09-25 08:46 | EKG ---
[place] [address] [address] [facility] [place] [address] ELECTROCARDIOGRAM REPORT Name: TEOFILO GOODEN Room #: 214-P ADM IN M.R.#: [id number] Admission: 09/24/20 Attend Phys: Sulema Dwyer MD Discharge: Date of : 57 Report #: [id number] [facility] Test Date: 2020-09-25 Test Time: 05:41:50 Pat Name: TEOFILO GOODEN Department: Room: 214 P Gender: M Director Of Compensation: : 1955 Requested By: Radha Hatfield Order Number: [id number] MD: Som Benavidez Measurements Intervals [place] Rate: 163 P: 151 [place]: 128 QRS: 74 QRSD: 92 T: 55 QT: 302 QTc: 498 Interpretive Statements AFIB Multiform ventricular premature complexes ST depression, probably rate related Compared to ECG 09/24/2020 11:53:23 Ventricular premature complex(es) now present ST (T wave) deviation now present Sinus rhythm no longer present Prolonged QT interval no longer present Electronically Signed On 09-25-2020 8:46:34 CDT by Som Benavidez [email or web address] <ELECTRONICALLY SIGNED> By: Som Benavidez MD, FACC 09/25/20 0846 0541 Som Benavidez MD, [facility] /EPI
[2020-09-25 11:31] VITALS: BP 98/57
[2020-09-25 13:56] LABS: HEMOGLOBIN 14.5 gm/dL (14.0-18.0)
[2020-09-25 14:00] LABS: HEMATOCRIT 43.2 % (42.0-52.0); MCH 38.3 pg (26.0-34.0); MCHC 33.6 g/dL (28.0-37.0); PLATELET COUNT 147 thou/uL (150-400); RBC 3.79 mil/uL (4.50-6.00); RDW 14.8 % (10.5-14.5)
[2020-09-25 16:59] VITALS: BP 114/87
[2020-09-25 18:49] LABS: ABSOLUTE NEUTROPHILS 10.3 thou/uL (1.4-8.2); MACROCYTES 3+
--- NOTE | 2020-09-25 20:48 | NUR ---
RECEIVED THE PATIENT ON BED, CONSCIOUS. ORIENTED BUT FORGETFUL.ON NASAL CANNULA AT 2LPM, SATURATING WELL.PATIENT IS ON AFIB WITH RATE AT 130'S.ON CARDIZEM DRIP AT 15MG/HR.AT AROUND 0800H, PATIENT REVERTED TO SINUS RYTHM, BLOOD PRESSURE IS ALSO LOW NORMAL 92/56, CARDIZEM DRIP DISCONTINUED.SEEN BY DR. ALVAREZ, RELAYED LAB RESULTS.POTASSIUM CORRECTION GIVEN.ALL NEEDS ATTENDED.VITALLY STABLE TILL THE SHIFT ENDS.HANDED OVER TO FARM MARKETER FOR FURTHER CARE.
[2020-09-26 00:38] VITALS: BP 92/50
[2020-09-26 05:56] VITALS: BP 93/52
[2020-09-26 06:18] LABS: HEMATOCRIT 38.6 % (42.0-52.0); HEMOGLOBIN 13.3 gm/dL (14.0-18.0); MCH 38.7 pg (26.0-34.0); MCHC 34.3 g/dL (28.0-37.0); MCV 112.7 fL (80.0-100.0); RBC 3.42 mil/uL (4.50-6.00); RDW 14.5 % (10.5-14.5); WBC 8.4 thou/uL (4.0-11.0)
[2020-09-26 06:40] LABS: CALCIUM 7.6 mg/dL (8.5-10.1); CREATININE 0.9 mg/dL (0.7-1.3)
--- NOTE | 2020-09-26 07:22 | HC ---
[facility] [place] [address] CONSULTATION Name: TEOFILO GOODEN Room #: 214-P ADM IN M.R.#: [id number] Admission: 09/24/20 Attend Phys: Sulema Dwyer MD Discharge: Date of : 57 Report #: [id number] THIS REPORT FOR: cc: DARRIUS - No family physician/PCP FAM - No family physician/PCP Sai Smith MD ~ DATE OF SERVICE: 09/25/2020 REASON FOR CONSULTATION: Cellulitis of the right upper extremity with right hand dorsum abscess, cellulitis of right leg. HISTORY OF PRESENT ILLNESS: The patient is a 65-year-old gentleman with a history of alcohol abuse and tobaccoism who lacks a home. He is admitted for dehydration and possible sepsis. He has been noted to have cellulitis of his right hand and leg. He has been seen by Dr. Mir who drained abscess on the dorsum of his right hand. He is on IV vancomycin. Wound culture has been taken of his right hand. PAST MEDICAL HISTORY: Heavy alcohol use, tobaccoism, history of bilateral pulmonary embolism, history of non-ST elevated myocardial infarction, congestive heart failure, history of deep vein thrombosis hyperbilirubinemia. ALLERGIES: No known drug allergies. MEDICATIONS: The patient is on IV vancomycin. LABORATORY DATA: White blood count 23.4. PHYSICAL EXAMINATION: GENERAL: Shows a large gentleman who is alert and arousable. HEENT: Mucous membranes are moist. NECK: Supple. ABDOMEN: Obese. EXTREMITIES: Examination of the right upper extremity shows some edema of the dorsum of the right hand with an apparent healing laceration. There is some thick purulent fluid draining from central portion of the dorsum of the right hand. There is some fluctuance on the dorsum of the right hand proximal to this healing laceration when pressure is placed on this then pus exudes from small opening over the laceration site. This wound has already been cultured. Examination of lower extremity shows some redness of the right lower extremity with some crusted exudate, but no obvious open wound. IMPRESSION: Admitted for, 1. Dehydration and sepsis. 2. Heavy alcohol use. 3. Cellulitis with abscess of right hand, apparent suspected old laceration. [facility] [address] [place] [address] CONSULTATION Name: TEOFILO GOODEN Room #: 214-P ADM IN M.R.#: [id number] Admission: 09/24/20 Attend Phys: Sulema Dwyer MD Discharge: Date of : 57 Report #: [id number] PLAN: The patient has been seen by Dr. Mir. He is on appropriate antibiotic therapy. Wound culture has been done. We will order topical Bactroban and a Kerlix wrap. Dorsum of the hand may require further surgical drainage. Close observation. Topical Bactroban to the right leg, observe, wound care team will follow. <ELECTRONICALLY SIGNED> By: Sai Smith MD 09/26/20 0722 0554 26 MD geetha Silva
--- NOTE | 2020-09-26 07:32 | 2DMMODE ---
[facility] [place] [address] 2 D/M-MODE ECHOCARDIOGRAM Name: TEOFILO GOODEN Room #: 214-P ADM IN M.R.#: [id number] Admission: 09/24/20 Attend Phys: Sulema Dwyer MD Discharge: Date of : 57 Report #: [id number] THIS REPORT FOR: cc: FAM - No family physician/PCP FAM - No family physician/PCP Som Benavidez MD [facility] ~ APPROVED REPORT Study performed: 09/25/2020 11:05:50 EXAM: Comprehensive 2D, Doppler, and color-flow Echocardiogram Patient Location: In-Patient Room #: 214 BSA: 2.37 HR: 78 bpm BP: 92/56 mmHg Rhythm: NSR Other Information Study Quality: Fair Indications Congestive Heart Failure Sepsis Hypertension/HDD 2D Dimensions IVSd: 8.02 (7-11mm) LVOT Diam: 23.96 (18-24mm) LVDd: 44.33 mm PWd: 9.74 (7-11mm) Ascending Ao: 32.97 (22-36mm) Left Atrium: 35.98 (27-40mm) Aortic Root: 31.54 mm Volumes Left Atrial Volume (Systole) Single Plane 4CH: 22.82 mL Aortic Valve AoV Peak Romeo.: 1.03 m/s AO Peak Gr.: 4.27 mmHg LVOT Max P.25 mmHg LVOT Max V: 1.15 m/s GERARD Vmax: 5.00 cm2 [facility] [address] [place] [address] 2 D/M-MODE ECHOCARDIOGRAM Name: TEOFILO GOODEN Room #: 214-P ADM IN M.R.#: [id number] Admission: 09/24/20 Attend Phys: Sulema Dwyer MD Discharge: Date of : 57 Report #: [id number] Mitral Valve E/A Ratio: 0.8 MV Decel. Time: 227.96 ms MV E Max Romeo.: 0.68 m/s MV A Romeo.: 0.83 m/s MV PHT: 66.11 ms MVA (PHT): 3.07 cm2 Pulmonary Valve PV Peak Romeo.: 0.74 m/s PV Peak Gr.: 2.19 mmHg Tricuspid Valve TR Peak Romeo.: 2.40 m/s RAP Estimate: 7.00 mmHg TR Peak Gr.: 22.95 mmHg RVSP: 30.00 mmHg Left Ventricle The left ventricle is normal size. There is normal LV segmental wall motion. Mild concentric left ventricular hypertrophy. Left ventricular systolic function is normal. The left ventricular ejection fraction is within the normal range. LVEF is 60-65%. Transmitral Doppler flow pattern suggests impaired LV relaxation. Right Ventricle The right ventricle is normal size. The right ventricular systolic function is normal. Atria The left atrium size is normal. The right atrium size is normal. Aortic Valve The aortic valve is normal in structure. No aortic regurgitation is present. There is no aortic valvular stenosis. Mitral Valve The mitral valve is normal in structure. There is no mitral valve regurgitation noted. No evidence of mitral valve stenosis. Tricuspid Valve The tricuspid valve is normal in structure. Mild tricuspid regurgitation. PAP 30 mmHg Pulmonic Valve The pulmonary valve is normal in structure. There is no pulmonic valvular regurgitation. [facility] [place] [address] [place] [address] 2 D/M-MODE ECHOCARDIOGRAM Name: TEOFILO GOODEN Room #: 214-P ADM IN M.R.#: [id number] Admission: 09/24/20 Attend Phys: uSlema Dwyer MD Discharge: Date of : 57 Report #: [id number] Great Vessels The aortic root is normal in size. IVC is normal in size and collapses >50% with inspiration. Pericardium There is no pericardial effusion. There is no pleural effusion. <Conclusion> Normal left ventricular size with mild concentric hypertrophy Ejection fraction 60% Normal right ventricular size/function Normal atrial size Color-flow Doppler study was performed of the aortic/mitral/tricuspid/pulmonary valve Normal aortic/mitral valve structure and function Mild tricuspid valve insufficiency Pulmonary systolic pressure estimated 30 mmHg Normal aortic root size No pericardial effusion <ELECTRONICALLY SIGNED> By: Som Benavidez MD, [facility] 09/26/20 0732 0732 [id number] Som Benavidez MD, FACC /INF
[2020-09-26 08:04] VITALS: BP 108/45
[2020-09-26 17:04] VITALS: BP 130/80
[2020-09-26 21:46] VITALS: BP 146/93
[2020-09-27 04:45] VITALS: BP 128/76
[2020-09-27 05:20] LABS: HEMATOCRIT 41.1 % (42.0-52.0); HEMOGLOBIN 14.1 gm/dL (14.0-18.0); MCH 38.5 pg (26.0-34.0); MCHC 34.3 g/dL (28.0-37.0); MCV 112.3 fL (80.0-100.0); RBC 3.66 mil/uL (4.50-6.00); RDW 14.6 % (10.5-14.5)
[2020-09-27 08:08] VITALS: BP 150/83
--- NOTE | 2020-09-27 09:44 | NUR ---
RD consulted. Pt admit due to right hand abscess/cellulitis. Hx NSTEMI, copd, etoh, afib. Eating 100% of all 3 meals from initial admit. Past DN2K wt trends show usual wt 210 lb. Current wts much higher 240-251 lb. Does have bilateral feet 2+ and right leg 2+ edema. On heart healthy diet. Presents low nutrition risk
[2020-09-27 09:46] LABS: CALCIUM 8.1 mg/dL (8.5-10.1); CREATININE 0.8 mg/dL (0.7-1.3); POTASSIUM 3.3 mmol/L (3.5-5.1); TOTAL BILIRUBIN 0.9 mg/dL (0.2-1.0); TOTAL PROTEIN 5.7 g/dL (6.4-8.2)
[2020-09-27 15:38] VITALS: BP 115/64
[2020-09-28 04:35] LABS: ABSOLUTE NEUTROPHILS 3.2 thou/uL (1.4-8.2); BASOPHILS 1.1 % (0.0-2.0); HEMATOCRIT 41.4 % (42.0-52.0); HEMOGLOBIN 14.3 gm/dL (14.0-18.0); LYMPHOCYTES 24.9 % (24.0-44.0); MCH 38.5 pg (26.0-34.0); MCHC 34.6 g/dL (28.0-37.0); MCV 111.4 fL (80.0-100.0); MONOCYTES 11.1 % (1.0-8.0); PLATELET COUNT 205 thou/uL (150-400); POLYS 57.9 % (36.0-66.0); RBC 3.72 mil/uL (4.50-6.00); RDW 14.7 % (10.5-14.5); WBC 5.4 thou/uL (4.0-11.0)
[2020-09-28 04:45] VITALS: BP 139/77
--- NOTE | 2020-09-28 07:39 | NUR ---
patient care was recieved at shift change. patient was assessed and meds were passed. patient showed a nice NSR in the 70's this shift. patient hand was was and keren applied. patiemt was able to sleep approx seven hours. patient is a/o he is able to gt his needs meet. he dos have a kenyon vocabulary, rounds were done. the bed alarm was on. the bed is in a low and locked position.
[2020-09-28 07:40] VITALS: BP 141/88
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
[2020-09-28 11:40] VITALS: BP 134/89
--- NOTE | 2020-09-28 12:25 | NUR ---
pt up in room steady gait, refused meds and ointment, call light with in reach, no distress. Pt educated on the meds he refused, pt cont to refused.
[2020-09-28 16:00] VITALS: BP 132/67
--- NOTE | 2020-09-28 18:49 | NUR ---
pt up in bed, resting , no distress, agreed to take meds at this time.
[2020-09-28 19:33] VITALS: BP 141/91
[2020-09-28 23:23] VITALS: BP 133/76
[2020-09-29 04:13] VITALS: BP 146/88
[2020-09-29 07:47] VITALS: BP 139/91
[2020-09-29] MEDS ORDERED: VITAMIN B-1100 M2 PO (08:36)
[2020-09-29] MEDS ORDERED: VEETIDS 250MG250 M1 PO (08:39)
[2020-09-29] MEDS ORDERED: CARDIZEM CD120 MG PO (08:39)
[2020-09-29] MEDS ORDERED: ELIQUIS5 M1 PO (08:39)
[2020-09-29 13:13] VITALS: BP 118/78
[2020-09-29 14:15] VITALS: BP 118/78
--- NOTE | 2020-09-29 14:19 | NUR ---
DISCHARGE NOTE: Pt is ready for discharge today. Meds vouched at [facility]. Total $459.00. SADAF notified Director of Case Mgmt. SADAF placed call to [facility] for usp placement. SADAF received call back from Breana, who provided medical clearance for pt to come to [facility]. Pt must be at [facility] by 1800. SADAF faxed requested info to Breana. Pt will be provided with cab voucher. Pt provided with info regarding safety net clinics and housing assistance. No additional SW need identified at this time, but is available to assist should needs arise.
[2020-09-29 14:55] VITALS: BP 118/78
--- NOTE | 2020-09-29 15:37 | NUR ---
Patient homeless. Vouched medications in amount of $496.00 approval from [facility] More[facility]. Called [facility] custodial unit multiple times leaving message. Spoke with [facility] who can accept patient. He needs to arrive prior to 6 pm. Spoke with patient who refuses. Reports he will dc outside of hospital. He will not go to custodial. Patient refused resources. Encouraged patient to go mission where they have casemgt. Reports he needs to be established with medical care as he is on eloquis. Patient refuses. Updated RN.
[2020-09-29 15:40] VITALS: BP 118/78
== END 2020-09-29 16:43 | disposition home or self-care (01) | DRG 871 ==
LOC: ER 10:53 → 2N 16:54 → EROBS 16:54 → 2N 16:55
PROVIDERS: Emergency Medicine; ADMIT Internal Medicine; ATTEND Internal Medicine
DX: A41.9 Sepsis, unspecified organism (principal); E43 Unspecified severe protein-calorie malnutrition; N39.0 Urinary tract infection, site not specified; L02.511 Cutaneous abscess of right hand; E87.1 Hypo-osmolality and hyponatremia; L03.115 Cellulitis of right lower limb; R65.20 Severe sepsis without septic shock; J44.9 Chronic obstructive pulmonary disease, unspecified; I73.9 Peripheral vascular disease, unspecified; E80.6 Other disorders of bilirubin metabolism; R74.01 Elevation of levels of liver transaminase levels; E83.42 Hypomagnesemia; N18.9 Chronic kidney disease, unspecified; F10.10 Alcohol abuse, uncomplicated; E86.0 Dehydration; I48.0 Paroxysmal atrial fibrillation; R41.0 Disorientation, unspecified; L55.9 Sunburn, unspecified; I95.9 Hypotension, unspecified; Z20.822 Contact with and (suspected) exposure to COVID-19; S61.411A Laceration without foreign body of right hand, initial encounter; I07.1 Rheumatic tricuspid insufficiency; I27.20 Pulmonary hypertension, unspecified; I12.9 Hypertensive chronic kidney disease with stage 1 through stage 4 chronic kidney disease, or unspecified chronic kidney disease; E87.6 Hypokalemia; Z86.711 Personal history of pulmonary embolism; I25.2 Old myocardial infarction; Z86.718 Personal history of other venous thrombosis and embolism; Z82.49 Family history of ischemic heart disease and other diseases of the circulatory system; Z87.891 Personal history of nicotine dependence; Z59.0 Homelessness; X58.XXXA Exposure to other specified factors, initial encounter; Y93.89 Activity, other specified; Y92.89 Other specified places as the place of occurrence of the external cause; Y99.8 Other external cause status; Z91.14 Patient's other noncompliance with medication regimen
CPT/HCPCS: 10081

== ENCOUNTER 2020-10-22 20:20 | Inpatient (IN) | payer OTHER ==
[~2020-10-22] VITALS: Ht 188 cm; Wt 110.0 kg
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
[~2020-10-22 20:20] MED LIST changes: +CARDIZEM CD120 MG PO; +VEETIDS 250MG250 M1 PO; +VITAMIN B-1100 M2 PO
[2020-10-22 20:22] VITALS: BP 149/94
[2020-10-22 21:56] LABS: HEMATOCRIT 42.7 % (42.0-52.0); HEMOGLOBIN 14.8 gm/dL (14.0-18.0); MCH 38.7 pg (26.0-34.0); MCHC 34.6 g/dL (28.0-37.0); MCV 111.7 fL (80.0-100.0); RBC 3.82 mil/uL (4.50-6.00); RDW 15.5 % (10.5-14.5); WBC 6.2 thou/uL (4.0-11.0)
[2020-10-22 22:14] LABS: APTT 24.7 Seconds (24.5-32.8); D-DIMER 1.23 ug/mLFEU (0.19-0.50); INR 1.11
[2020-10-22 22:25] LABS: ALBUMIN 2.5 g/dL (3.4-5.0); CALCIUM 7.7 mg/dL (8.5-10.1); CREATININE 1.1 mg/dL (0.7-1.3); TOTAL BILIRUBIN 0.9 mg/dL (0.2-1.0); TOTAL PROTEIN 6.7 g/dL (6.4-8.2)
[2020-10-22 22:41] LABS: POTASSIUM 2.8 mmol/L (3.5-5.1)
[2020-10-23] VITALS (7 sets, daily range): BP systolic 124–133; BP diastolic 64–82
[2020-10-23 04:44] LABS: HEMATOCRIT 42.2 % (42.0-52.0); HEMOGLOBIN 14.4 gm/dL (14.0-18.0); MCH 38.7 pg (26.0-34.0); MCV 113.8 fL (80.0-100.0); RBC 3.7 mil/uL (4.50-6.00); RDW 15.8 % (10.5-14.5); WBC 6.6 thou/uL (4.0-11.0)
[2020-10-23 05:11] LABS: CALCIUM 7.9 mg/dL (8.5-10.1); CREATININE 1.1 mg/dL (0.7-1.3); POTASSIUM 3.4 mmol/L (3.5-5.1)
--- NOTE | 2020-10-23 07:18 | NUR ---
PT CAME UP TO THE UNIT AT AROUND 0637 HRS. PT ORIENTED TO ROOM AND STAFF. CALL LIGHT WITHIN REACH. REPORT GIVEN TO OMAYRA MEJIA.
[2020-10-24 04:14] VITALS: BP 126/73
[2020-10-24 05:13] LABS: HEMATOCRIT 42.2 % (42.0-52.0); HEMOGLOBIN 14.1 gm/dL (14.0-18.0); MCHC 33.4 g/dL (28.0-37.0); MCV 113.9 fL (80.0-100.0); RBC 3.7 mil/uL (4.50-6.00); RDW 15.7 % (10.5-14.5); WBC 5.9 thou/uL (4.0-11.0)
[2020-10-24 05:32] LABS: CALCIUM 8.1 mg/dL (8.5-10.1); POTASSIUM 3.9 mmol/L (3.5-5.1)
--- NOTE | 2020-10-24 06:24 | NUR ---
Pt. slept well during the night. Tolerating room air well with O2 sat in the low to mid 90's. SR per tele . Pt. up ad albin except he reported that at times he has problems with balance. Encouraged to get up slowly and to call staff if needs assistance and he verbalized understanding.
[2020-10-24 07:30] VITALS: BP 109/66
--- NOTE | 2020-10-24 12:37 | EKG ---
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 : 1955 Requested By: Caroline Morel Order Number: [id number] MD: Alberto Mustafa Measurements Intervals [place] Rate: 148 P: [place]: QRS: 70 QRSD: 92 T: 37 QT: 332 QTc: 522 Interpretive Statements Atrial fibrillation with rapid V-rate Nonspecific ST and T wave abnormality Compared to ECG 09/25/2020 05:41:50 No significant changes Electronically Signed On 10-24-2020 12:37:31 CDT by Alberto Mustafa [email or web address] <ELECTRONICALLY SIGNED> By: Alberto Mustafa MD, [facility] 10/24/20 1237 2106 05 Alberto Mustafa MD, FACC /EPI
--- NOTE | 2020-10-24 12:37 | EKG ---
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 : 1955 Requested By: Surinder Sage Order Number: [id number] MD: Alberto Mustafa Measurements Intervals [place] Rate: 148 P: NE: QRS: 70 QRSD: 92 T: 37 QT: 332 QTc: 522 Interpretive Statements Atrial fibrillation with rapid V-rate Nonspecific ST and T wave abnormality Compared to ECG 09/25/2020 05:41:50 No significant changes Electronically Signed On 10-24-2020 12:37:45 CDT by Alberto Mustafa [email or web address] <ELECTRONICALLY SIGNED> By: Alberto Mustafa MD, [facility] 10/24/20 1237 05 Alberto Mustafa MD, FACC /EPI
[2020-10-24 16:00] VITALS: BP 131/76
[2020-10-24 20:15] VITALS: BP 109/60
[2020-10-25 00:24] LABS: HEMATOCRIT 43.7 % (42.0-52.0)
[2020-10-25 00:26] LABS: HEMOGLOBIN 14.7 gm/dL (14.0-18.0); MCH 38.4 pg (26.0-34.0); MCHC 33.7 g/dL (28.0-37.0); MCV 113.9 fL (80.0-100.0); RBC 3.84 mil/uL (4.50-6.00); RDW 15.8 % (10.5-14.5); WBC 5.9 thou/uL (4.0-11.0)
[2020-10-25 04:45] VITALS: BP 141/80
--- NOTE | 2020-10-25 07:21 | NUR ---
UPON SHIFT ASSESSMENT, PT AOX4, NOTABLY HARD OF HEARING. PT DENIES PAIN AND SOB WHILE ON ROOM AIR. PT TOLERATING PO INTAKE OF FLUIDS AND HEART HEALTHY DIET WITHOUT ISSUE. PT WITHOUT NAUSEA OR EMESIS. PT AMBULATING INDEPENDENTLY IN ROOM AND TO BATHROOM. SENSATION INTACT. PERIPHERAL PULSES PALPABLE IN BUE, FAINT IN BLE. +3 PITTING EDEMA NOTED IN BLE. CAPILLARY REFILL LESS THAN 3SEC. PT RESTING IN BED THROUGHOUT SHIFT. FREQUENT REPOSITIONING ENCOURAGED WHILE IN BED, PT NOTED TO SHIFT INDEPENDENTLY. UPON 2ND VITAL ASSESSMENT, PT NOTED TO BE AT 88% WHILE ON ROOM AIR. 2L O2 VIA NC APPLIED, O2 SATURATION IMPROVED TO 90%, NO FURTHER DESATURATION NOTED. PT ENCOURAGED TO NOTIFY STAFF FOR ALL NEEDS, CALL LIGHT WITHIN REACH, BED LOCKED IN LOWEST POSITION, FREQUENT MONITORING WILL CONTINUE.
[2020-10-25] MEDS ORDERED: CARDIZEM CD120 MG PO ×3 (07:42→12:07)
[2020-10-25] MEDS ORDERED: ELIQUIS5 MG PO ×3 (07:42→12:07)
[2020-10-25 07:55] VITALS: BP 144/96
[2020-10-25 10:39] VITALS: BP 144/96
[2020-10-25 12:07] VITALS: BP 144/96
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
--- NOTE | 2020-10-25 12:30 | NUR ---
Assumed care of pt this AM. Pt is A&O x 4, on RA. Denies any chest pain. Sinus arrhythmia on the monitor. Plans to d/c today. Will continue to assess pt needs throughout the day.
--- NOTE | 2020-10-25 12:55 | NUR ---
DISCHARGE NOTE: discharge educated provided to pt. All paperwork signed. IV & tele monitor discontinued. Presciption given to pt. Stressed for pt to follow up w/ [facility] & activate Eliquis card for lower co-pays. Pt wheeled to ED enterance.
== END 2020-10-25 14:15 | disposition home or self-care (01) | DRG 308 ==
LOC: ER 20:20 → 2N 23:37 → EROBS 23:37 → 2N 10-23 06:34
PROVIDERS: Nurse Practitioner Family; ADMIT Hospitalist; ATTEND Hospitalist
DX: I48.91 Unspecified atrial fibrillation (principal); J96.01 Acute respiratory failure with hypoxia; I82.403 Acute embolism and thrombosis of unspecified deep veins of lower extremity, bilateral; Z79.01 Long term (current) use of anticoagulants; I10 Essential (primary) hypertension; E87.6 Hypokalemia; Z91.14 Patient's other noncompliance with medication regimen; Z59.0 Homelessness; Z86.711 Personal history of pulmonary embolism; J44.9 Chronic obstructive pulmonary disease, unspecified; F10.20 Alcohol dependence, uncomplicated; F17.210 Nicotine dependence, cigarettes, uncomplicated; Z71.6 Tobacco abuse counseling; Z20.822 Contact with and (suspected) exposure to COVID-19
CPT/HCPCS: 10081

== ENCOUNTER 2020-12-14 16:59 | Inpatient (IN) | payer OTHER ==
[~2020-12-14] VITALS: Ht 188 cm; Wt 103.4 kg
[2020-12-14 17:13] VITALS: BP 116/76
[2020-12-14 18:31] LABS: HEMATOCRIT 45.7 % (42.0-52.0); HEMOGLOBIN 15.7 gm/dL (14.0-18.0); MCH 41.1 pg (26.0-34.0); MCHC 34.4 g/dL (28.0-37.0); MCV 119.7 fL (80.0-100.0); PLATELET COUNT 209 thou/uL (150-400); RBC 3.82 mil/uL (4.50-6.00); RDW 18.2 % (10.5-14.5); WBC 4.8 thou/uL (4.0-11.0)
[2020-12-14 18:47] LABS: ALBUMIN 2.6 g/dL (3.4-5.0); CALCIUM 8.2 mg/dL (8.5-10.1); TOTAL BILIRUBIN 0.9 mg/dL (0.2-1.0); TOTAL PROTEIN 6.7 g/dL (6.4-8.2)
[2020-12-14 18:51] LABS: POTASSIUM 2.5 mmol/L (3.5-5.1)
--- NOTE | 2020-12-14 19:12 | NUR ---
REPORT GIVEN TO ROBERTO MONROY AT THIS TIME
[2020-12-14 19:19] LABS: ABSOLUTE NEUTROPHILS 2.3 thou/uL (1.4-8.2); ANISOCYTOSIS 1+; MACROCYTES 1+
[2020-12-14 22:47] VITALS: BP 132/87
[2020-12-14 22:59] VITALS: BP 114/75
[2020-12-14 23:31] VITALS: BP 142/94
--- NOTE | 2020-12-15 04:49 | NUR ---
ROMEL PT GOT UP TO USE RESTROOM AND PEED AND POOPED ON THE FLOOR. BED ALARM PLACED ON. PT THIS AM GOT UP PULLED OUT HIS IV BECAUSE IT WAS BOTHERING HIM AND TOOK OFF HIS 5L OF 02 TO WALK TO THE RESTROOM. BED ALARM WAS SOUNDING. PT DID NOT CALL FOR HELP. PT IS AWARE OF HIS ACTIONS AND CHOOSING NOT TO FOLLOW EDUCATION.
--- NOTE | 2020-12-15 05:34 | NUR ---
IV RESTARTED IVF WITH POTASSIUM AND POTASSIUM RESTARTED AT SLOW RATE. PT REPORTED POTASSIUM BURNING WHEN HE AWAKENED, SO HE PULLED OUT HIS IV. NS IVF WILL START AFTER ED BAG. BED ALARM ON.
--- NOTE | 2020-12-15 07:19 | EKG ---
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: : 1955 Requested By: Brock Rey Order Number: [id number] MD: Som Benavidez Measurements Intervals [place] Rate: 66 P: 49 HI: 146 QRS: 67 QRSD: 138 T: 88 QT: 575 QTc: 603 Interpretive Statements Sinus rhythm Left atrial enlargement Nonspecific intraventricular conduction delay Compared to ECG 10/22/2020 21:06:32 Atrial abnormality now present Intraventricular conduction delay now present T-wave abnormality now present Possible ischemia now present Atrial fibrillation no longer present ST (T wave) deviation no longer present Electronically Signed On 12-15-2020 7:19:31 CDT by Som Benavidez [email or web address] <ELECTRONICALLY SIGNED> By: Som Benavidez MD, FACC 12/15/20 [phone] Som Benavidez MD, [facility] /EPI
[2020-12-15 07:26] LABS: HEMATOCRIT 45.2 % (42.0-52.0); HEMOGLOBIN 15.2 gm/dL (14.0-18.0); MCH 40.6 pg (26.0-34.0); MCHC 33.6 g/dL (28.0-37.0); RBC 3.74 mil/uL (4.50-6.00); RDW 18.5 % (10.5-14.5); WBC 2.4 thou/uL (4.0-11.0)
[2020-12-15 07:29] LABS: INR 1.12; PROTIME 12.1 Seconds (10.5-12.1)
[2020-12-15 07:37] VITALS: BP 140/83
[2020-12-15 07:40] LABS: ANION GAP < 0 mmol/L (7-16); BUN 11 mg/dL (7-18); CALCIUM 8.1 mg/dL (8.5-10.1); CHLORIDE 103 mmol/L (98-107); CO2 41 mmol/L (21-32); CREATININE 0.8 mg/dL (0.7-1.3); GLUCOSE 145 mg/dL (74-106); POTASSIUM 3.9 mmol/L (3.5-5.1); SGOT 77 U/L (15-37); SGPT 67 U/L (16-63); SODIUM 137 mmol/L (136-145); TOTAL BILIRUBIN 0.5 mg/dL (0.2-1.0); TOTAL PROTEIN 5.9 g/dL (6.4-8.2)
[2020-12-15 07:49] LABS: ALBUMIN < 0.6 g/dL (3.4-5.0)
[2020-12-15 11:25] VITALS: BP 120/77
--- NOTE | 2020-12-15 15:10 | NUR ---
INITIAL ASSESSMENT: SW reviewed chart and spoke with nursing and attending physician. Pt was admitted due to shortness of breath/chronic PE. Pt tested positive for COVID in the ER. Pt placed in Enhanced Isolation. Per chart, pt has received a COVID vaccination. Pt is afebrile and on 5L of O2. Pt is on IV steroids. Remdesivir started. Pt with hx HTN/CHF/PVD. Pt is on Eliquis. Pt does not currently have health insurance. [facility] to screen pt for [place]-Medicaid. SADAF placed call to pt's room. No answer. Pt known to SW from prior hospitalizations. Pt has been homeless in the past. SW has vouched for pt's scripts due to lack of insurance. SW to follow up with pt at a later time to complete assessment and discuss discharge plan.
[2020-12-15 15:44] VITALS: BP 145/92
[2020-12-15 19:27] VITALS: BP 133/89
--- NOTE | 2020-12-16 03:35 | NUR ---
ASSESSED AT START OF SHIFT 0. PT RESTING IN BED WANTS TO BE LEFT ALONE. IV INTACT AND REMDESIVIR TREATMENT STARTED. EVEING MEDS GIVEN AND PT RAVI IT WELL. PT ON 2L OF O2 AND LIKE TO TAKE IT OFF, THIS NURSE. ENCOURAGED PT TO KEEP O2 ON AND EDUCATION PROVIDED. PT TOOK OF TELE MONITORX2 AND SET ON THE RABLE. NURSE EDUCATED PT TO LEAVE IT ON. CALL LIGHT AT REACH. DENIES N/V. WILL CONT TO MONITOR.
[2020-12-16 06:37] LABS: ABSOLUTE NEUTROPHILS 5.5 thou/uL (1.4-8.2); BASOPHILS 0.1 % (0.0-2.0); HEMOGLOBIN 15.2 gm/dL (14.0-18.0); MCH 41.5 pg (26.0-34.0); MCHC 34.5 g/dL (28.0-37.0); MCV 120.3 fL (80.0-100.0); MONOCYTES 6.8 % (1.0-8.0); PLATELET COUNT 207 thou/uL (150-400); POLYS 77.1 % (36.0-66.0); RBC 3.65 mil/uL (4.50-6.00); RDW 18.1 % (10.5-14.5); WBC 7.1 thou/uL (4.0-11.0)
[2020-12-16 06:50] LABS: ALBUMIN 2.2 g/dL (3.4-5.0); CALCIUM 8.3 mg/dL (8.5-10.1); CREATININE 0.9 mg/dL (0.7-1.3); DIRECT BILIRUBIN 0.1 mg/dL (<0.1-0.2); TOTAL BILIRUBIN 0.6 mg/dL (0.2-1.0); TOTAL PROTEIN 5.7 g/dL (6.4-8.2)
[2020-12-16 06:51] LABS: POTASSIUM 5.3 mmol/L (3.5-5.1)
[2020-12-16 07:33] VITALS: BP 124/84
[2020-12-16 11:27] VITALS: BP 114/73
--- NOTE | 2020-12-16 12:26 | HC ---
[facility] [place] [address] CONSULTATION Name: TEOFILO GOODEN Room #: 349-I ADM IN .R.#: [id number] Admission: 12/14/20 Attend Phys: Levi Herron MD Discharge: Date of : 57 Report #: [id number] THIS REPORT FOR: cc: FAM - No family physician/PCP FAM - No family physician/PCP Damion Almanza MD ~ DATE OF SERVICE: 12/15/2020 INFECTIOUS DISEASE CONSULTATION ATTENDING PHYSICIAN: Dr. Herron. REASON FOR EVALUATION: COVID-19 infection, complicated by pneumonitis, respiratory failure. HISTORY OF PRESENT SUBJECTIVE: Chart reviewed. The patient was examined. This is a 65-year-old gentleman with a known history of DVT, PE, who has been ill for a number of days. He is unable to give details, but became progressively dyspneic. Due to history of PE, he presented to the emergency room. Initial evaluation suggested pneumonitis on chest x-ray. Coronavirus testing was positive. Lactic acid in the normal range. D-dimer was elevated at 0.83. Procalcitonin less than 0.05. 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 Initial white count of 2.4, hemoglobin 15.2, MCV interestingly was 121. He has not had fevers documented since admission. He was empirically placed on antibiotics with azithromycin, ceftriaxone, and remdesivir as well as dexamethasone and vitamins. ALLERGIES: None known. CURRENT MEDICATIONS: Include famotidine, thiamine, diltiazem CD, apixaban, dexamethasone, zinc, cholecalciferol, ascorbic acid, ceftriaxone, guaifenesin, albuterol, p.r.n. analgesics, antiemetics, azithromycin, and remdesivir. PAST MEDICAL HISTORY: Hypertension, COPD, peripheral vascular disease, previous deep venous thrombosis with PE, atrial fibrillation, previous history of gastric ulcer. SOCIAL HISTORY: Former smoker, fairly regular ethanol. No illicit drug use. FAMILY HISTORY: Noncontributory. REVIEW OF SYSTEMS: Otherwise unremarkable, somewhat lethargic and difficult for him to give details. PHYSICAL EXAMINATION: GENERAL: Appears somewhat chronically ill. He is at least mildly [facility] [address] [address] CONSULTATION Name: TEOFILO GOODEN Room #: 349-I ADM IN [facility].#: [id number] Admission: 12/14/20 Attend Phys: Levi Herron MD Discharge: Date of : 57 Report #: [id number] encephalopathic, lethargic, mild to moderate distress. VITAL SIGNS: Temperature 97.5, pulse 68, respirations 20, blood pressure 140/77. SKIN: Warm. HEENT: Normocephalic. Extraocular muscles intact. Nasal cannula in place at 4 liters per nasal cannula. NECK: Supple. LUNGS: Bilateral breath sounds are diminished. There are some scattered coarse breath sounds. HEART: Irregular, I do not appreciate a murmur. ABDOMEN: Mildly distended, somewhat firm, nontender. GENITOURINARY AND RECTAL: Deferred. LABORATORY DATA: Electrolytes: Sodium 137, potassium 3.9, chloride 103, bicarbonate is 41, anion gap of less than 0. BUN and creatinine 11 and 0.8. Glucose of 145, AST of 77, ALT of 67. Total protein of 5.9, albumin less than 0.6. Estimated GFR of 97. CBC: White count of 2.4, H and H of 15.2 and 45.2, platelets of 199. MCV markedly elevated at 121. Chest PE protocol as described above. 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 ASSESSMENT AND PLAN: COVID-19 infection, complicated by pneumonitis and respiratory failure in the setting of a chronic PE. We will continue empiric therapy with combination antibiotics directed at possible secondary bacterial pneumonitis as well as therapy directed against coronavirus with dexamethasone and remdesivir. He is clearly at risk for progressive disease. He is profoundly hypoalbuminemic. Apparently has significant underlying lung disease. It is not entirely clear why he has got a macrocytosis either. We will add incentive spirometry. Monitor expectantly, oxygen therapy as required. <ELECTRONICALLY SIGNED> By: Damion Almanza MD 12/16/20 1226 [id number] Damion Almanza MD /nt
[2020-12-16 15:19] VITALS: BP 129/90
--- NOTE | 2020-12-16 15:20 | NUR ---
SADAF reviewed chart and spoke with nursing and attending physician. Pt remains in Enhanced Isolation. Pt is afebrile and on 2L of O2. Pt is on IV abx, IV steroids and Remdesivir. SADAF placed call to pt's room to discuss discharge plan. No answer. SADAF placed call to listed contact number for pt ([phone]). This number is no longer in service. SADAF asked pt's nurse to call SW from pt's room. Pt has been staying with his sister prior to admission. SW needs to confirm pt's discharge plan. Pt has hx of homelessness. SADAF is following to assist as needed with discharge planning.
[2020-12-16 19:05] VITALS: BP 119/81
[2020-12-16 19:33] VITALS: BP 129/90
--- NOTE | 2020-12-16 19:43 | NUR ---
PT ALERT AND ORIENTED X 4. PT NON COMPLIANT WITH WEARING O2. PT [place]. PT POTENTIALLY D/C'ING TOMORROW BUT PLACEMENT IS UNKNOWN. PT SISTER IS AN OPTION, AND POSSIBLY A HOTEL. PT DENIES PAIN OR ANY NEEDS AT THIS TIME. WILL CONTINUE TO MONITOR.
--- NOTE | 2020-12-16 23:17 | NUR ---
PT ASSESSED AT START OF SHIFT. NO IV ACCESS PT PULLED IT OUT STATED WSN'T SURE IF HE STILL NEEDS IT. EDUCATED PT. NEW IV 22G INSERTED IN LFT FA AFTER MULTIPLE ATTEMPTS FROM THIS RN AND OTHER NURSE. IV WRAPPED WITH COBAND. URINAL AT BEDSIDE. EVENING MEDS GIVEN AND PT RAVI IT WELL. WANTS TO GO HOME TOMORROW WILL CONT TO MONITOR.
[2020-12-17 04:00] VITALS: BP 126/82
[2020-12-17 07:12] VITALS: BP 166/90
[2020-12-17 08:56] LABS: HEMATOCRIT 45.5 % (42.0-52.0); HEMOGLOBIN 15.2 gm/dL (14.0-18.0); MCH 40.6 pg (26.0-34.0); MCHC 33.4 g/dL (28.0-37.0); MCV 121.4 fL (80.0-100.0); RBC 3.75 mil/uL (4.50-6.00); RDW 18.5 % (10.5-14.5); WBC 6.5 thou/uL (4.0-11.0)
[2020-12-17 09:23] LABS: CALCIUM 8.4 mg/dL (8.5-10.1); CREATININE 0.8 mg/dL (0.7-1.3)
[2020-12-17 09:25] LABS: ALBUMIN 1.7 g/dL (3.4-5.0); CALCIUM 8.3 mg/dL (8.5-10.1); CREATININE 0.8 mg/dL (0.7-1.3); DIRECT BILIRUBIN 0.1 mg/dL (<0.1-0.2); PHOSPHORUS 3.2 mg/dL (2.6-4.7); POTASSIUM 3.7 mmol/L (3.5-5.1); TOTAL BILIRUBIN 0.5 mg/dL (0.2-1.0); TOTAL PROTEIN 5.6 g/dL (6.4-8.2)
[2020-12-17 15:18] VITALS: BP 150/111
--- NOTE | 2020-12-17 15:28 | NUR ---
SW reviewed chart and spoke with nursing and attending physician. Pt remains in Enhanced Isolation due to COVID. Pt is afebrile and requiring 2L of O2. Pt is on IV abx and Remdesivir. Pt is progressing towards goals for discharge. SW placed call to pt's room to discuss discharge plan. No answer. SW requested pt's nurse to have pt call SW to discuss plan. Pt is homeless and is not sure if he will be able to stay with family/friends due to having COVID. [employer] is following to assist with [place]. SW is following to assist as needed with discharge planning.
--- NOTE | 2020-12-17 17:25 | NUR ---
PT IS PROGRESSING TOWARDS CARE. ALERT AND ORIENTED X4. DENIES ANY PAIN. CURRENTLY ON 1L OF OXYGEN. SOB WITH EXERTION. PT ENCOURAGE TO USE IS, STATED HE WILL LATER. IV IN PLACE. USES URINAL. CONTINUE TO BE IN ENHANCED ISOLATION. FALL PRECAUTIONS IN PLACE.
[2020-12-17 19:05] VITALS: BP 149/94
--- NOTE | 2020-12-18 01:59 | NUR ---
RESTING QUIETLY TONIGHT. CONTINUES ON IV REMDESVIR. DENIES PAIN. NO CONCERNS VOICED.
[2020-12-18 03:50] VITALS: BP 150/96
[2020-12-18 06:05] LABS: ALBUMIN 2.5 g/dL (3.4-5.0); ANION GAP 8 mmol/L (7-16); BUN 14 mg/dL (7-18); CALCIUM 8.5 mg/dL (8.5-10.1); CHLORIDE 103 mmol/L (98-107); CO2 30 mmol/L (21-32); CREATININE 0.8 mg/dL (0.7-1.3); DIRECT BILIRUBIN < 0.1 mg/dL (<0.1-0.2); GLUCOSE 99 mg/dL (74-106); PHOSPHORUS 3.7 mg/dL (2.5-4.9); POTASSIUM 4.3 mmol/L (3.5-5.1); SGOT 43 U/L (15-37); SGPT 40 U/L (30-65); SODIUM 141 mmol/L (136-145); TOTAL BILIRUBIN 0.5 mg/dL (0.2-1.0); TOTAL PROTEIN 6.2 g/dL (6.4-8.2)
[2020-12-18 07:42] VITALS: BP 169/98
[2020-12-18 15:10] VITALS: BP 140/91
[2020-12-18 19:15] VITALS: BP 145/81
--- NOTE | 2020-12-18 19:15 | NUR ---
PROGRESSING TOWARDS POC GOALS.
[2020-12-19 02:27] VITALS: BP 170/84
--- NOTE | 2020-12-19 04:59 | NUR ---
Patient progressing towards outcome goals. Up adlib in room Oxygenation optimal on room air. Denies pain. Last dose of Remdesivir completed. Patient discontinued saline lock this morning, states he does not need it anymore and refuses to get another started.
[2020-12-19 05:29] LABS: HEMATOCRIT 47.1 % (42.0-52.0); MCH 41.1 pg (26.0-34.0); MCV 120.8 fL (80.0-100.0); RBC 3.9 mil/uL (4.50-6.00); RDW 18.3 % (10.5-14.5); WBC 5.9 thou/uL (4.0-11.0)
[2020-12-19 05:45] LABS: ALBUMIN 2.3 g/dL (3.4-5.0); CALCIUM 8.5 mg/dL (8.5-10.1); CREATININE 0.8 mg/dL (0.7-1.3); DIRECT BILIRUBIN 0.1 mg/dL (<0.1-0.2); PHOSPHORUS 4.5 mg/dL (2.5-4.9); POTASSIUM 3.7 mmol/L (3.5-5.1); TOTAL BILIRUBIN 0.5 mg/dL (0.2-1.0); TOTAL PROTEIN 5.7 g/dL (6.4-8.2)
--- NOTE | 2020-12-19 06:28 | NUR ---
Patient continues to refuse IV restarted. Made aware that in case of emergency his care will be delayed. Philippe Hatfield [employer] SAL[employer] LEAD[employer] notified. Saturation remains optimal on room air, 92%.
[2020-12-19 07:38] VITALS: BP 163/96
[2020-12-19 15:49] VITALS: BP 121/88
--- NOTE | 2020-12-19 18:16 | NUR ---
TOLERATED ON RA. UP AD NAGA. PROGRESSING TOWARDS POC GOALS.
[2020-12-19 19:55] VITALS: BP 145/88
--- NOTE | 2020-12-20 05:26 | NUR ---
Patient progressing towards outcome goals. Oxygenation optinal on room air, sats 90-92%. Up adlib without difficulty. Discahrge plans for today.
[2020-12-20 05:45] VITALS: BP 158/90
[2020-12-20 07:00] VITALS: BP 134/82
[2020-12-20] MEDS ORDERED: CARDIZEM CD120 MG PO (11:51)
[2020-12-20] MEDS ORDERED: PREDNISONE 10 M10 M1 PO (11:52)
[2020-12-20 12:23] VITALS: BP 134/82
--- NOTE | 2020-12-20 15:27 | NUR ---
DISCHARGE NOTE: SADAF reviewed chart and spoke with nursing and attending physician. Pt remains in Enhanced Isolation due to COVID. Pt is afebrile and on room air. Pt is medically stable for discharge today. SADAF placed call to pt's room. No answer. Pt's nurse in pt's room and answered. SADAF spoke with pt to discuss discharge plan. Pt states he is not able to go stay with his sister, as she lives in a small apartment and has multiple family members living with her. Pt reports that he has not received his monthly social security check and needs that in order to figure out his plan. SADAF explained to pt that he does not have a medical reason to remain in the hospital. SADAF further explained that pt will have his new prescriptions filled at the outpatient pharmacy and a cab voucher will be provided. SADAF requested to call his sister, Norma, as she had left a message for SADAF regarding his discharge plan. Pt provided consent for SW to call [facility]. SADAF spoke with Norma at length regarding pt's current condition and d/c plan. Norma confirmed that he cannot stay with her at this time. Norma is immunocompromised and has allowed pt to have his social security check mailed to her home. Norma further states that she has given pt money and helped him for years due to his long hx of ETOH abuse. Pt is not compliant with any treatment programs and does not follow up with physicians or other programs. SADAF explained that pt is medically stable for discharge and that he will not be able to go to a homeless alf either due to having COVID. Pt's sister verbalized understanding and states she will find pt after he is discharged to provide him with a new cell phone and his monthly check. New prescriptions sent to [facility]. Total is $35.85. Nursing staff to picker/puller prescriptions when they are ready. SADAF provided cab voucher # [id number] to pt. SADAF faxed [facility] list to [facility] to provide to pt with his discharge ppwk. [employer] is following to assist with [place]. No further SW needs identified at this time, but is available to assist should needs arise.
--- NOTE | 2020-12-20 15:52 | NUR ---
PATIENT A/O X4. RA. AMBULATED IN ROOM. PATIENT AGREEBLE TO GO. LEFT AT [id number]
== END 2020-12-20 15:58 | disposition home or self-care (01) | DRG 177 ==
LOC: ER 16:59 → 3W 21:40 → EROBS 21:40 → 3W 23:21
PROVIDERS: Nurse Practitioner; Nurse Practitioner Family; ADMIT Hospitalist; ATTEND Hospitalist
PROC: XW033E5 Introduction of Remdesivir Anti-infective into Peripheral Vein, Percutaneous Approach, New Technology Group 5 (ICD-10-PCS; principal; 2020-12-15)
DX: U07.1 COVID-19 (principal); J96.01 Acute respiratory failure with hypoxia; J12.82 Pneumonia due to coronavirus disease 2019; J44.1 Chronic obstructive pulmonary disease with (acute) exacerbation; E87.6 Hypokalemia; I48.0 Paroxysmal atrial fibrillation; Z79.01 Long term (current) use of anticoagulants; Z86.718 Personal history of other venous thrombosis and embolism
CPT/HCPCS: 10879